=== PATIENT | female | born 1980 | race Two or more races ===

== ENCOUNTER 2017-01-01 10:30 | Emergency (ER) | payer MEDICAID ==
[2017-01-01 11:24] VITALS: BP 127/59
--- NOTE | 2017-01-01 11:27 | UC ---
Eye Complaint HPI - HPI Summary HPI Summary: LEFT EYE draining itchy and red - History of Current Complaint Chief Complaint: UCEye Stated Complaint: EYE ISSUE Time Seen by Provider: 01/01/17 11:30 Hx Obtained From: Patient Hx Last Menstrual Period: 11/01/16 ?: Yes Onset/Duration: Sudden Onset, Gradual Onset Severity Initially: Mild Severity Currently: Mild Location of Injury: Conjunctiva Aggravating Factor(s): Nothing Alleviating Factor(s): Nothing Associated Signs And Symptoms: Positive: Drainage (Clear) - Allergies/Home Medications Allergies/Adverse Reactions: Allergies Allergy/AdvReac Type Severity Reaction Status Date / Time No Known Allergies Allergy Verified 01/01/17 11:24 Home Medications: Home Medications Sertraline* [Zoloft*] 25 mg PO DAILY 01/01/17 [History Confirmed 01/01/17] PMH/Surg Hx/FS Hx/Imm Hx Previously Healthy: No Psychological History: Anxiety - Surgical History Surgical History: None Surgery Procedure, Year, and Place: defib - Family History Known Family History: Positive: None - Social History Occupation: Student Lives: With Family Alcohol Use: Rare Substance Use Type: None Smoking Status (MU): Never Smoked Tobacco Review of Systems Constitutional: Negative Skin: Negative Eyes: Drainage - os, Eye Redness - os ENT: Negative Respiratory: Negative Cardiovascular: Negative Gastrointestinal: Negative Genitourinary: Negative Motor: Negative Neurovascular: Negative Musculoskeletal: Negative Neurological: Negative Psychological: Negative All Other Systems Reviewed And Are Negative: Yes Physical Exam Triage Information Reviewed: Yes Appearance: Well-Appearing, No Pain Distress, Well-Nourished Vital Signs: Initial Vital Signs Temp 98.6 F 01/01/17 11:20 Pulse 76 01/01/17 11:20 Resp 16 01/01/17 11:20 BP 127/59 01/01/17 11:20 Pulse Ox 100 01/01/17 11:20 Vital Signs Reviewed: Yes Eye Exam: Normal Eyes: Positive: Conjunctiva Inflamed - os, Discharge - os ENT Exam: Normal ENT: Positive: Normal ENT inspection, Hearing grossly normal, Pharynx normal. Negative: Nasal congestion, Nasal drainage, TMs normal, Trismus, Muffled/hoarse voice Dental Exam: Normal Neck exam: Normal Neck: Positive: Supple, Nontender Respiratory Exam: Normal Respiratory: Positive: Chest non-tender, Lungs clear, Normal breath sounds, No respiratory distress, No accessory muscle use Cardiovascular Exam: Normal Cardiovascular: Positive: RRR, No Murmur, Pulses Normal, Brisk Capillary Refill Musculoskeletal Exam: Normal Musculoskeletal: Positive: Strength Intact, ROM Intact, No Edema Neurological Exam: Normal Neurological: Positive: Alert, Fatigued Psychological Exam: Normal Skin Exam: Normal Eye Complaint Course/Dx - Course Course Of Treatment: warm compress polytrim opthalmic drops, follow with opthamology if needed - Differential Dx/Diagnosis Differential Diagnosis/HQI/PQRI: Conjunctivitis, Foreign Body, Orbital Cellulitis Provider Diagnoses: OS Conjuctivitis Discharge - Discharge Plan Condition: Stable Disposition: HOME Prescriptions: Polymyx/Trimethoprim OPTH* [Polytrim OPHTH*] 1 drop LEFT EYE Q4H #1 btl Patient Education Materials: Conjunctivitis (ED), How to Use Eye Drops (ED) Referrals: Freddy Lanza MD [Medical Doctor] - If Needed
== END 2017-01-01 11:38 | disposition home or self-care (01) ==
LOC: UCEAST 10:30
DX: H10.9 Unspecified conjunctivitis (principal); F41.9 Anxiety disorder, unspecified
CPT/HCPCS: 99212; G0463

== ENCOUNTER 2017-01-09 14:42 | Emergency (ER) | payer MEDICAID ==
[2017-01-09 15:22] VITALS: BP 105/51
--- NOTE | 2017-01-09 15:29 | UC ---
Psychiatric Complaint HPI - HPI Summary HPI Summary: 36 YEAR OLD FEMALE PRESENTS WITH FOR A REFILL OF HER ZOLOFT. SHE HAS BEEN ON ZOLOFT FOR OVER 10 YEARS AND WILL BE SEEING A PCP IN THE NEXT MONTH. - History Of Current Complaint Chief Complaint: UCMedRefill Stated Complaint: MED REFILL Time Seen by Provider: 01/09/17 15:26 Hx Last Menstrual Period: 2 weeks ago - Allergies/Home Medications Allergies/Adverse Reactions: Allergies Allergy/AdvReac Type Severity Reaction Status Date / Time No Known Allergies Allergy Verified 01/01/17 11:24 PMH/Surg Hx/FS Hx/Imm Hx Previously Healthy: Yes - Surgical History Surgical History: Yes Surgery Procedure, Year, and Place: defib - Family History Known Family History: Positive: None - Social History Alcohol Use: Rare Substance Use Type: None Smoking Status (MU): Never Smoked Tobacco Review of Systems Constitutional: Negative Skin: Negative Eyes: Negative ENT: Negative Respiratory: Negative Cardiovascular: Negative Gastrointestinal: Negative Genitourinary: Negative Motor: Negative Neurovascular: Negative Musculoskeletal: Negative Neurological: Negative Psychological: Depressed All Other Systems Reviewed And Are Negative: Yes Physical Exam Triage Information Reviewed: Yes Vital Signs: Initial Vital Signs Temp 37.0 C 01/09/17 15:15 Pulse 58 01/09/17 15:15 Resp 16 01/09/17 15:15 BP 105/51 01/09/17 15:15 Pulse Ox 100 01/09/17 15:15 Eye Exam: Normal ENT Exam: Normal Dental Exam: Normal Neck exam: Normal Neck: Positive: 1 Respiratory Exam: Normal Cardiovascular Exam: Normal Abdominal Exam: Normal Musculoskeletal Exam: Normal Neurological Exam: Normal Psychological Exam: Normal Skin Exam: Normal Psych Complaint Course/Dx - Differential Dx/Diagnosis Provider Diagnoses: DEPRESSION Discharge - Discharge Plan Condition: Stable Disposition: HOME Prescriptions: Sertraline* [Zoloft*] 100 mg PO DAILY #30 tab Referrals: No Primary Care Phys,NOPCP [Primary Care Provider] -
== END 2017-01-09 15:49 | disposition home or self-care (01) ==
LOC: UCEAST 14:42
DX: F32.9 Major depressive disorder, single episode, unspecified (principal); Z95.810 Presence of automatic (implantable) cardiac defibrillator
CPT/HCPCS: 99212; G0463

== ENCOUNTER → 2018-03-12 06:56 | Day surgery (SDC) | payer OTHER ==
[~2018-03-12 06:56] MED LIST: Diazepam TAB(*) 5 MG ONE; Lidocaine 1% INJ* 10 MG/ML 30 ML SDV ONE; Midazolam* 1 MG/ML 5 ML VIAL (5 MG) ONE; ceFAZolin VIAL 1 GM in NS *SYRINGE * * 10 ML ONE; ceFAZolin* 2 GM* ONE DOSE (Duplex) IVPB; fentaNYL* 50 MCG/ML 2 ML VIAL (100 MCG VIAL) ONE
--- NOTE | 2018-03-13 11:02 | OP ---
CC: Dr. Livingston; Dr. Brown * DATE OF OPERATION: 03/12/18 - [facility] CATH DATE OF : 80 SURGEON: Obie Kenny MD ANESTHESIA: Local anesthesia with conscious sedation. PRE-OP DIAGNOSIS: Brugada syndrome, ICD at elective replacement indicator. POST-OP DIAGNOSIS: Brugada syndrome, ICD at elective replacement indicator. OPERATIVE PROCEDURE: Single chamber ICD generator change. ESTIMATED BLOOD LOSS: Nil. COMPLICATIONS: None. INDICATIONS: The patient is a 37-year-old female who had an ICD placed in 1998 for ventricular tachycardia and Brugada syndrome. The patient has been poorly followed. She was living in [place] for a while. The patient was seen in consultation by Dr. Livingston and her ICD was noted to be at elective replacement indicator. DESCRIPTION OF PROCEDURE: The patient was brought to the procedure room in a fasting state. Informed consent had been obtained prior to the procedure. All labs had been reviewed. The patient was placed supine on the procedure table. Her left deltopectoral area was cleaned and draped in the usual fashion. 1% lidocaine was used for local anesthesia. A 4.5-cm incision was made at the superior aspect of the device and blunt dissection was carried down to the fibrous sheath. The fibrous sheath was opened and the device was removed from the pocket. The device was detached from the ventricular lead. The pocket was flushed with normal saline. A new generator was attached appropriately to the atrioventricular lead. The surgical incision was closed in three layers. The explanted device is a [employer] model T175, serial number [id number], implant date 03/29/10. The new device is a [employer] Model SZ1802, serial number [id number]. The ventricular lead was tested and noted to be functioning normally. The ventricular lead is a [employer] Model 0125, implant date 07/14/98. [id number]/[facility] #: [id number] [facility]
== END | disposition home or self-care (01) ==
LOC: CHICATH 06:56
PROVIDERS: ATTEND Specialist
DX: Z45.02 Encounter for adjustment and management of automatic implantable cardiac defibrillator (principal); I49.8 Other specified cardiac arrhythmias; I47.2 Ventricular tachycardia; I25.2 Old myocardial infarction; F32.9 Major depressive disorder, single episode, unspecified; Z87.891 Personal history of nicotine dependence
CPT/HCPCS: 33241; 88300; 93641; 99156; 99157; A9270-GY; C1722; J0690; J2250; J3010

== ENCOUNTER 2019-05-10 11:23 | Emergency (ER) | payer OTHER ==
[2019-05-10 11:44] VITALS: BP 129/73
--- NOTE | 2019-05-10 12:08 | UC ---
Eye Complaint HPI - HPI Summary HPI Summary: Patient presents urgent care for evaluation of her left eye. Patient says for 2 days she feels like lower lid is getting swollen. Patient's concerned she may have a stye but never happened before. Patient states she does have a slight sense of foreign body. Patient is any vision changes. No drainage. No photophobia. No trauma. No eye pain. Patient does not wear contact lenses. Patient without any other complaints. No ear pain or sinus pain. Patient's medications reviewed this visit is entered in EMR by triage nurse. - History of Current Complaint Chief Complaint: UCEar Stated Complaint: EYE ISSUE Hx Obtained From: Patient Hx Last Menstrual Period: 04/28/19 Onset/Duration: Gradual Onset Severity Initially: Mild Pain Intensity: 0 - Allergies/Home Medications Allergies/Adverse Reactions: Allergies Allergy/AdvReac Type Severity Reaction Status Date / Time No Known Allergies Allergy Verified 05/10/19 11:44 PMH/Surg Hx/FS Hx/Imm Hx Previously Healthy: Yes - TBI - Surgical History Surgical History: Yes Surgery Procedure, Year, and Place: defib - Family History Known Family History: Positive: Non-Contributory Negative: Cardiac Disease, Hypertension, Diabetes - Social History Occupation: Employed Full-time - Massage therapy Lives: With Family Alcohol Use: Occasionally Substance Use Type: None Smoking Status (MU): Never Smoked Tobacco Review of Systems All Other Systems Reviewed And Are Negative: Yes Constitutional: Positive: Negative Skin: Positive: Negative Eyes: Positive: Other - discomfort Physical Exam - Summary Physical Exam Summary: Vital Signs Reviewed: Yes A+Ox3, no distress Eyes: Conjunctiva Clear - no injection, MARGARITA, EOM intact and full, pt with small forming stye mid lower lid. No drainage, no photophobia, crisp fundoscopic margin with permission - fluorescence examination - no uptake ENT: Hearing grossly normal TM x 2 clear, mmoist, uvula midline, no exudate, no erythema Neck: Positive: Supple Respiratory: Positive: No respiratory distress, No accessory muscle use + CTA throughout no w/r Cardiovascular: RRR nl s1, s2 no m/r CBT <2 sec abd soft + BS nt/nd no guarding, no distension Musculoskeletal Exam: GARCIA x 4 without difficulty Strength Intact, ROM Intact Neurological: Positive: Alert, + sensation throughout Psychological: Positive: Normal Response To examiner Skin: Positive: no rash, no ecchymosis Triage Information Reviewed: Yes Vital Signs: Initial Vital Signs Temp 99.3 F 05/10/19 11:42 Pulse 73 05/10/19 11:42 Resp 17 05/10/19 11:42 BP 129/73 05/10/19 11:42 Pulse Ox 100 05/10/19 11:42 Eye Complaint Course/Dx - Course Course Of Treatment: Patient presents urgent care for evaluation of her left eye. Patient was developing starting the lower lid. Patient has been in for 2 days. Patient reports mild discomfort. On exam patient with evolving stye no photophobia [place] fundoscopic margin. I did do a fluorescein exam showed no uptake. Discussed with patient treatment options. 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 Discussed with patient was in constant antibiotics. Patient requested that she get antibiotics from the eye. I will prescribe erythromycin ointment. Throat handwashing discussed. Reviewed patient should return precautions. Patient comfortable in agreement with plan. Grossly - Differential Dx/Diagnosis Provider Diagnosis: Hordeolum of left eye Discharge ED - Sign-Out/Discharge Documenting (check all that apply): Patient Departure All imaging exams completed and their final reports reviewed: No Studies - Discharge Plan Condition: Stable Disposition: HOME Prescriptions: Erythromycin OPTH OINT* [Erythromycin 0.5% OPTH OINT*] 1 applic LEFT EYE TID #1 ophth.oint Patient Education Materials: [place] (ED) Referrals: Merari Brown MD [Primary Care Provider] - Additional Instructions: - apply eye ointment 3 times a day for 5 days - wash your hand thoroughly before and after you apply antibiotics - apply warm compresses to your eye 3 times a day for 5 days - Contact the eyelet punch operator for a follow-up appointment if you have increased pain, drainage, vision changes, or any other concerns - Billing Disposition and Condition Condition: STABLE Disposition: Home
[2019-05-10] MEDS ORDERED: Fluorescein Sodium TOPICAL* 1 MG TEST STRIP OPHTHALMIC ONE (12:19)
== END 2019-05-10 12:52 | disposition home or self-care (01) ==
LOC: UCEAST 11:23
DX: H00.016 Hordeolum externum left eye, unspecified eyelid (principal)
CPT/HCPCS: 99212; A9270-GY; G0463